=== PATIENT | male | born 1985 | race Caucasian/White ===

== ENCOUNTER 2022-06-19 12:27 | Emergency (ER) | payer MEDICARE, OTHER ==
[~2022-06-19] VITALS: Ht 172.7 cm; Wt 72.6 kg
[2022-06-19 12:36] VITALS: BP 126/80
[2022-06-19] MEDS ORDERED: DOXY-326 PO (13:06)
[2022-06-19] MEDS ORDERED: DOXYCYCLINE HYCLATE (100 MG) 100 MG TABLET ONE (13:30)
[2022-06-19] MEDS ORDERED: DOXYCYCLINE HYCLATE (100 MG) 100 MG TABLET PO ONE (13:30)
[2022-06-19] MEDS ORDERED: LIDOCAINE /MPF 1% VIAL 5 ML VIAL ONE (13:30)
[2022-06-19] MEDS ORDERED: CEFTRIAXONE 500 MG VIAL ONE (13:30)
[2022-06-19] MEDS ORDERED: CEFTRIAXONE 500 MG VIAL IM ONE (13:30)
== END 2022-06-19 13:50 | disposition home or self-care (01) ==
LOC: ER 12:32
DX: A64 Unspecified sexually transmitted disease (principal); Z60.2 Problems related to living alone; Z79.899 Other long term (current) drug therapy
CPT/HCPCS: 99283; 96372; 87491; 87591; J0696; J3490

== ENCOUNTER 2022-10-24 20:25 | Emergency (ER) | payer MEDICARE, OTHER ==
[~2022-10-24] VITALS: Ht 177.8 cm; Wt 81.6 kg
[~2022-10-24 20:25] MED LIST: DOXY-326 PO
--- NOTE | 2022-10-24 20:56 | NUR ---
BIBRA39. TO ER CH1. AAOX4. NOT IN RESP DISTRESS. AMBULATORY. BROUGHT IN FOR DYSURIA AND FREQUENCY FOR THE PAST 6 MONTHS. URINE WAS COLLECTED. AWAITING MD FOR EVAL.
[2022-10-24 21:48] LABS: BILIRUBIN,URINE NEGATIVE (NEGATIVE); COLOR,URINE YELLOW (YELLOW); LEUKOCYTE ESTERASE ,URINE NEGATIVE (NEGATIVE); NITRITE, URINE NEGATIVE (NEGATIVE); PH,URINE 5.5 (5.0-8.0); PROTEIN,URINE NEGATIVE (NEGATIVE); UGLUCOSE NEGATIVE (NEGATIVE); UROBILINOGEN,URINE 0.2 EU/dL (0.2)
--- NOTE | 2022-10-24 22:13 | NUR ---
Patient discharged to home in stable condition. Written and verbal after care instructions given. Patient verbalizes understanding of instruction.
[2022-10-24 22:27] VITALS: BP 119/64
== END 2022-10-24 22:27 | disposition home or self-care (01) ==
LOC: ER 20:27
DX: R30.0 Dysuria (principal); Z60.2 Problems related to living alone

== ENCOUNTER 2022-10-25 10:01 | Emergency (ER) | payer MEDICARE, OTHER ==
[~2022-10-25] VITALS: Ht 167.6 cm; Wt 77.1 kg
[2022-10-25 10:13] VITALS: BP 121/77
--- NOTE | 2022-10-25 11:30 | NUR ---
ADRIEN ECHAVARRIA AT BEDSIDE TALKING TO PATIENT.
--- NOTE | 2022-10-25 11:45 | NUR ---
SS Consult: SS Consult requested for homelessness. The pt. is a 37-year-old White male pt. who came in to "feet pain, tired of walking" per EMR. Upon SS consult, the pt. is Alert & Oriented x 4 and makes avoidant eye contact. The pt. appears well-groomed. Pt. has euthymic mood & affect. Pt. has clear speech and normal thought process. Pt. is very hard of hearing and a poor historian. Pt. states he has trouble remembering things. Pt. was calm & cooperative throughout interview. The pt. denies current SI/HI and denies current hallucinations. SW explored pt.'s mental health Hx. Pt. denies any Hx. of mental health. ITALIA explored pt.'s living situation, Pt. states he has been experiencing homelessness for the past 5 years. ITALIA explored pt.'s drug & ETOH use. Pt. denies drug and alcohol use. Per pt. he is paraplegic and dependent with his ADL's. Pt. states he does not receive any financial assistance. Pt. states that he is not in communication with his family. Per pt. he is currently having SI with no plan. ITALIA asked pt. if he is willing to go voluntarily to [facility] for [facility] Tx. Plan: ITALIA will bereferred pt. to [facility] [[address] [place] [address] FAX:[phone]] for inpatient psychiatric treatment. Patient signed homeless waiver & it was placed in the pt.'s chart. ITALIA provided pt. with homeless resources and he accepted them: [facility] Ret[facility] list : [facility]; [facility] Adult WSP site; [facility] Adult WSP site; and [facility] Adult WSP site; instruction to call 211 for availability. Year-round shelters: [facility] [place] [address] [place] [address] ; [facility] [place] [address] [place] [address]; [facility] [address] [facility] [address] Hygiene: [facility] [address] [address] [place] ; [facility] [address] [facility] ; [facility] [address] [place] . Food Resources: [employer] [facility] at [facility]- [address] [place]; Meet Each Need with Dignity ([facility]) [address] [facility]; [facility] 4[address] [facility]; [facility] 6879 [facility]. Mental Health resources provided: [facility] [address] [place], [place] [id number] ; [facility] [place] [address] [facility] [address], [place], [place] [id number] ; [facility] [address] [facility] [place] [address] ; [facility] [place], [place] [id number] Healthcare Clinics: [facility] [address] [facility], [address] [place]. [place] ; [facility] [address] [facility] [address] [place] [address]; [facility] [place] [address] [facility] [place] [address] 485) [phone] Counseling--[facility]patient [facility] [address] [facility], [place] [address] (Specializes in in-depth psychotherapy for emotional distress: anxiety, depression, interpersonal conflicts, life transitions, childhood abuse) [facility] [address] [place] [address] (Assist with solving problem marital difficulties, separation & divorce, aging parents, & grief, chronic & terminal illness) [facility] [address] [place] [address] (Deal with loss & grief, anxiety, marital difficulties) Homebound/Mental Health Services [address] [facility] [address] [place] [address] (Provide in-home mental services to people who are incapable of leaving their homes) [facility] Senior Service/Resource Center [address] [place] [address] [facility] [address] [place] [address] PSYCHIATRIC OUTPATIENT SERVICES [facility] Partial Hospitalization and Intensive Outpatient Program (Managed Care and Pyle Only)[address] [facility] [phone] [facility] Partial Hospitalization and Outpatient Dzeucyt[address] [facility]. [address] [place], [place] [phone] [facility] [place] Yet[address] [facility] [address] [place], [place] [phone] [facility] Partial Hospitalization and Outpatient [address] [place], [phone] Substance Abuse resources provided included: [facility] Substance Abuse Self-Helpline ([facility]) ; C[facility]LP [address] [facility]. [place] [address] ; [facility] [address] [facility] [address] ; [facility] [address] [facility] [address] ; [facility] [address] [facility] [phone] ; [facility] 49[address] [facility] [address] ; [facility] [address] [facility] [address] ; [facility] Substance Abuse Helpline([facility])-[facility] ; [facility] ; [facility]; [facility] [place]; [facility] [place]; [facility] Daron Gibson; [facility] [place]; [facility]; [facility], [facility]. [place]; Alcoholics Anonymous -[facility]V; Gr-Czox-Nsudkwp ; Marijuana Anonymous -[facility]; Narcotics Anonymous www.na.org;
--- NOTE | 2022-10-25 11:56 | NUR ---
HEARING AIDE TECHNICIAN AT BEDSIDE FOR BLOOD DRAW.
[2022-10-25 12:10] LABS: BASOPHILS % (AUTO) 0.1 % (0.0-2.0); EOSINOPHILS % (AUTO) 1.9 % (0.0-6.0); HEMATOCRIT 47 % (39-51); HEMOGLOBIN 15.3 g/dL (13.5-17.5); LYMPHOCYTES # (AUTO) 1.9 K/uL (0.8-4.8); LYMPHOCYTES % (AUTO) 29.8 % (20.0-44.0); MEAN CORPUSCULAR HGB CONC 32 g/dl (31.0-36.0); MEAN CORPUSCULAR VOLUME 93 fL (80-96); MONOCYTES # (AUTO) 0.5 K/uL (0.1-1.30); MONOCYTES % (AUTO) 8.4 % (2.0-12.0); NEUTROPHILS # (AUTO) 3.9 K/uL (1.8-8.9); NEUTROPHILS % (AUTO) 59.8 % (43.0-81.0); PLATELET COUNT (AUTO) 310 K/uL (150-450); RED BLOOD CELL COUNT(AUTO) 5.11 MIL/uL (4.5-6.0); WHITE BLOOD COUNT (AUTO) 6.5 K/uL (4.3-11.0)
[2022-10-25 12:28] LABS: ALANINE AMINOTRANSFERASE 28 U/L (12-78); ALBUMIN 4.1 g/dL (3.4-5.0); ALCOHOL, BLOOD < 3 mg/dL (0-0); ALKALINE PHOSPHATASE 102 U/L (46-116); ASPARTATE AMINOTRANSFERASE 23 U/L (15-37); BILIRUBIN,DIRECT 0.2 mg/dL (0.0-0.2); BILIRUBIN,TOTAL 0.6 mg/dL (0.2-1.0); CALCIUM, SERUM 9.3 mg/dL (8.5-10.1); CARBON DIOXIDE 29 mmol/L (21-32); CHLORIDE 107 mmol/L (98-107); CREATININE 0.9 mg/dL (0.6-1.3); GLUCOSE 97 mg/dL (74-106); POTASSIUM 4.3 mmol/L (3.5-5.1); SODIUM SERUM 143 mmol/L (136-145); TOTAL PROTEIN, SERUM 7.5 g/dL (6.4-8.2); UREA NITROGEN, BLOOD 10 mg/dL (7-18)
[2022-10-25 12:30] LABS: ACETAMINOPHEN 0 ug/ml (10-30)
--- NOTE | 2022-10-25 13:21 | NUR ---
PT NO LONGER AT HOLDING ROOM. ELOPED. ERMD AWARE.
== END 2022-10-25 13:25 | disposition left against medical advice (07) ==
LOC: ER 10:10
DX: M79.673 Pain in unspecified foot (principal); Z20.822 Contact with and (suspected) exposure to COVID-19; Z60.2 Problems related to living alone; Z79.899 Other long term (current) drug therapy
CPT/HCPCS: 36415; 80048-TC; 80076-TC; 85025-TC; C9803; G0480

== ENCOUNTER 2023-03-30 07:02 | Emergency (ER) | payer MEDICARE, OTHER ==
[~2023-03-30] VITALS: Ht 172.7 cm; Wt 76.7 kg
[2023-03-30 08:59] LABS: BASOPHILS % (AUTO) 0.2 % (0.0-2.0); EOSINOPHILS # (AUTO) 0.1 K/uL (0.0-0.7); EOSINOPHILS % (AUTO) 0.5 % (0.0-6.0); HEMATOCRIT 41 % (39-51); HEMOGLOBIN 13.8 g/dL (13.5-17.5); LYMPHOCYTES # (AUTO) 1.7 K/uL (0.8-4.8); LYMPHOCYTES % (AUTO) 17.9 % (20.0-44.0); MEAN CORPUSCULAR HEMOGLOBIN 31 PG (26.0-33.0); MEAN CORPUSCULAR HGB CONC 34 g/dl (31.0-36.0); MEAN CORPUSCULAR VOLUME 93 fL (80-96); MONOCYTES # (AUTO) 0.9 K/uL (0.1-1.30); NEUTROPHILS # (AUTO) 6.9 K/uL (1.8-8.9); NEUTROPHILS % (AUTO) 72.4 % (43.0-81.0); PLATELET COUNT (AUTO) 224 K/uL (150-450); RED BLOOD CELL COUNT(AUTO) 4.45 MIL/uL (4.5-6.0); RED CELL DISTRIBUTION WIDTH 14.3 % (11.5-15.0); WHITE BLOOD COUNT (AUTO) 9.5 K/uL (4.3-11.0)
[2023-03-30 09:11] LABS: APPEARANCE,URINE CLEAR (CLEAR); BILIRUBIN,URINE NEGATIVE (NEGATIVE); BLOOD, URINE NEGATIVE Ery/uL (NEGATIVE); COLOR,URINE YELLOW (YELLOW); KETONES,URINE NEGATIVE (NEGATIVE); LEUKOCYTE ESTERASE ,URINE NEGATIVE (NEGATIVE); NITRITE, URINE NEGATIVE (NEGATIVE); PROTEIN,URINE NEGATIVE (NEGATIVE); UGLUCOSE NEGATIVE (NEGATIVE); UROBILINOGEN,URINE 0.2 EU/dL (0.2)
[2023-03-30 09:15] LABS: CALCIUM, SERUM 8.7 mg/dL (8.5-10.1); CARBON DIOXIDE 23 mmol/L (21-32); CHLORIDE 108 mmol/L (98-107); CREATININE 1.1 mg/dL (0.6-1.3); GLUCOSE 102 mg/dL (74-106); POTASSIUM 3.5 mmol/L (3.5-5.1); SODIUM SERUM 140 mmol/L (136-145); UREA NITROGEN, BLOOD 21 mg/dL (7-18)
[2023-03-30 09:21] LABS: ACETAMINOPHEN 0 ug/ml (10-30); ALANINE AMINOTRANSFERASE 12 U/L (12-78); ALCOHOL, BLOOD < 3 mg/dL (0-10); ALKALINE PHOSPHATASE 89 U/L (46-116); ASPARTATE AMINOTRANSFERASE 4 U/L (15-37); BILIRUBIN,DIRECT 0.1 mg/dL (0.0-0.2); BILIRUBIN,TOTAL 0.2 mg/dL (0.2-1.0); SALICYLATE < 2.3 mg/dL (2.8-20.0); TOTAL PROTEIN, SERUM 6.9 g/dL (6.4-8.2)
[2023-03-30 09:28] LABS: AMPHETAMINE, URINE NEGATIVE (NEGATIVE); BARBITURATE, URINE NEGATIVE (NEGATIVE); BENZODIAZEPINE, URINE NEGATIVE (NEGATIVE); CANNABINOID, URINE NEGATIVE (NEGATIVE); COCCAINE, URINE NEGATIVE (NEGATIVE); OPIATE, URINE NEGATIVE (NEGATIVE); PHENCYCLIDINE SCREEN,URINE NEGATIVE (NEGATIVE)
[2023-03-30 09:35] VITALS: BP 139/85; TEMP 98.4; O2SAT 98
== END 2023-03-30 09:35 | disposition home or self-care (01) ==
LOC: ER 07:06
DX: F19.10 Other psychoactive substance abuse, uncomplicated (principal); Z60.2 Problems related to living alone
CPT/HCPCS: 36415; 80048-TC; 80076-TC; 85025-TC; G0480

== ENCOUNTER 2023-11-04 03:42 | Emergency (ER) | payer MEDICARE, OTHER ==
[~2023-11-04] VITALS: Ht 167.6 cm; Wt 61.7 kg
[~2023-11-04 03:42] MED LIST changes: +CHLO473M3 PO
[2023-11-04 04:54] LABS: APPEARANCE,URINE CLEAR (CLEAR); BILIRUBIN,URINE NEGATIVE (NEGATIVE); BLOOD, URINE NEGATIVE Ery/uL (NEGATIVE); COLOR,URINE YELLOW (YELLOW); KETONES,URINE TRACE mg/dL (NEGATIVE); LEUKOCYTE ESTERASE ,URINE NEGATIVE (NEGATIVE); NITRITE, URINE NEGATIVE (NEGATIVE); PH,URINE 5.5 (5.0-8.0); PROTEIN,URINE NEGATIVE (NEGATIVE); UGLUCOSE NEGATIVE (NEGATIVE); UROBILINOGEN,URINE 0.2 EU/dL (0.2)
[2023-11-04 05:04] LABS: BARBITURATE, URINE NEGATIVE (NEGATIVE); BENZODIAZEPINE, URINE NEGATIVE (NEGATIVE); CANNABINOID, URINE NEGATIVE (NEGATIVE); COCCAINE, URINE NEGATIVE (NEGATIVE); OPIATE, URINE NEGATIVE (NEGATIVE); PHENCYCLIDINE SCREEN,URINE NEGATIVE (NEGATIVE)
[2023-11-04 05:08] LABS: AMPHETAMINE, URINE POSITIVE (NEGATIVE)
[2023-11-04 05:49] VITALS: BP 139/77; TEMP 98.1; O2SAT 100
== END 2023-11-04 05:50 | disposition home or self-care (01) ==
LOC: ER 03:53
DX: F15.10 Other stimulant abuse, uncomplicated (principal); Z79.899 Other long term (current) drug therapy; Z60.2 Problems related to living alone